=== PATIENT | male | born 1995 | race Caucasian/White ===

== ENCOUNTER 2017-07-02 22:56 | Emergency (ER) | payer MEDICAID, OTHER ==
[~2017-07-02] VITALS: Ht 175.3 cm; Wt 138.0 kg
[2017-07-02 23:05] VITALS: BP 156/90
== END 2017-07-03 04:50 | disposition left against medical advice (07) ==
LOC: ER 22:56
DX: Z53.21 Procedure and treatment not carried out due to patient leaving prior to being seen by health care provider (principal)

== ENCOUNTER 2017-09-12 03:31 | Emergency (ER) | payer MEDICAID ==
[~2017-09-12] VITALS: Ht 175.3 cm; Wt 122.0 kg
[2017-09-12 03:32] VITALS: BP 141/88
== END 2017-09-12 10:17 | disposition left against medical advice (07) ==
LOC: ER 03:31
DX: Z53.21 Procedure and treatment not carried out due to patient leaving prior to being seen by health care provider (principal)

== ENCOUNTER → 2022-03-09 | Day surgery (SDC) | payer MEDICAID ==
[~2022-03-09] VITALS: Ht 177.8 cm; Wt 135.2 kg
[~2022-03-09] MED LIST: ATOR20TA PO; BUPIVACAINE HCL 300 MG IMPLANT(XARACOLL) IL NR; BUPIVACAINE HCL/PF 0.5% (5MG/ML) 30ML ONE; CLINDAMYCIN 900 MG PREMIX 50 ML IV ONE; DEXAMETHASONE 4MG/ML 1ML VIAL ONE; FENTANYL CITRATE/PF 50MCG/ML 2ML VIAL IV PRN; FENTANYL CITRATE/PF 50MCG/ML 2ML VIAL ONE; HYDROCODONE/ACETAMINOPHEN 5/325MG TABLET PO PRN; HYDROMORPHONE HCL/PF 2MG/ML CPJ IV PRN; LACTATED RINGERS 1,000 ML IV SCH; LIDOCAINE HCL 1% 20ML VIAL (Pyxis) INJ ONE; MIDAZOLAM HCL 2 MG/2 ML VIAL ONE; ONDANSETRON HCL 4MG/2ML INJ ONE; PROPOFOL 200MG/20ML VIAL IV ONE; ROCURONIUM BROMIDE 10MG/ML VIAL 5ML IV ONE; SUCCINYLCHOLINE CHLORIDE 200MG/10ML IV ONE
[2022-03-09 09:37] VITALS: BP 169/75
== END | disposition home or self-care (01) ==
LOC: OR 06:07
PROVIDERS: ATTEND Surgery
DX: K40.90 Unilateral inguinal hernia, without obstruction or gangrene, not specified as recurrent (principal); E78.00 Pure hypercholesterolemia, unspecified; Z79.899 Other long term (current) drug therapy; Z98.890 Other specified postprocedural states; Z20.822 Contact with and (suspected) exposure to COVID-19; Z88.0 Allergy status to penicillin
CPT/HCPCS: 49505; 87426; C1781; C9803; J0330; J1100; J2250; J2405; J2704; J3010; J3490; C9089

== ENCOUNTER 2023-07-13 01:05 | Emergency (ER) | payer MEDICAID, OTHER ==
[~2023-07-13] VITALS: Ht 175.3 cm; Wt 109.0 kg
[~2023-07-13 01:05] MED LIST changes: -BUPIVACAINE HCL 300 MG IMPLANT(XARACOLL) IL NR; -BUPIVACAINE HCL/PF 0.5% (5MG/ML) 30ML ONE; -CLINDAMYCIN 900 MG PREMIX 50 ML IV ONE; -DEXAMETHASONE 4MG/ML 1ML VIAL ONE; -FENTANYL CITRATE/PF 50MCG/ML 2ML VIAL IV PRN; -FENTANYL CITRATE/PF 50MCG/ML 2ML VIAL ONE; -HYDROCODONE/ACETAMINOPHEN 5/325MG TABLET PO PRN; -HYDROMORPHONE HCL/PF 2MG/ML CPJ IV PRN; -LACTATED RINGERS 1,000 ML IV SCH; -LIDOCAINE HCL 1% 20ML VIAL (Pyxis) INJ ONE; -MIDAZOLAM HCL 2 MG/2 ML VIAL ONE; -ONDANSETRON HCL 4MG/2ML INJ ONE; -PROPOFOL 200MG/20ML VIAL IV ONE; -ROCURONIUM BROMIDE 10MG/ML VIAL 5ML IV ONE; -SUCCINYLCHOLINE CHLORIDE 200MG/10ML IV ONE
[2023-07-13 01:14] VITALS: O2SAT 99
[2023-07-13 02:49] LABS: BASOPHILS % 0.6 % (0.0-2.0); EOSINOPHILS % 0.9 % (0.0-5.0); HEMATOCRIT. 36.5 % (42.0-52.0); HEMOGLOBIN. 11.8 g/dL (14.0-18.0); LYMPHOCYTES % 14.7 % (20.0-50.0); MEAN CORPUSCULAR HEMOGLOBIN 28.5 pg (28.0-32.0); MEAN CORPUSCULAR HGB CONC 32.4 g/dL (31.0-37.0); MEAN PLATELET VOLUME 8.8 fl (7.4-10.4); MONOCYTES % 6.6 % (2.0-8.0); NEUTROPHILS % 77.2 % (40.0-76.0); PLATELET 162 x1000/uL (130-400); RED BLOOD CELL COUNT 4.15 mill/uL (4.7-6.1); RED CELL DISTRIBUTION WIDTH 13.5 % (11.6-14.6); WHITE BLOOD COUNT 14.8 x1000/uL (4.5-11.0)
[2023-07-13 03:04] LABS: ALANINE AMINOTRANSFERASE 15 IU/L (10-49); ALBUMIN 3.8 g/dL (3.2-4.8); ASPARTATE AMINOTRANSFERASE 21 IU/L (<34); BILIRUBIN TOTAL 0.3 mg/dL (0.1-1.0); CALCIUM 8.3 mg/dL (8.7-10.4); CARBON DIOXIDE 19 mEq/L (21-32); CHLORIDE 112 mEq/L (98-107); CREATININE 3.3 mg/dL (0.6-1.3); GLUCOSE 104 mg/dL (70-105); POTASSIUM 5.1 mEq/L (3.5-5.1); PROTEIN TOTAL 6.1 g/dL (6.0-8.3); SODIUM 139 mEq/L (136-145); UREA NITROGEN BLOOD 30 mg/dL (9-23)
[2023-07-13] MEDS: KETOROLAC 30MG/ML VIAL IV STA (06:06)
[2023-07-13] MEDS: ONDANSETRON HCL 4MG/2ML INJ IV STA (06:06)
[2023-07-13 07:16] LABS: CLARITY URINE CLEAR (CLEAR); COLOR URINE YELLOW (YELLOW); GLUCOSE URINE NEGATIVE (NEGATIVE); KETONES URINE NEGATIVE (NEGATIVE); LEUKOCYTE ESTERASE URINE NEGATIVE (NEGATIVE); NITRITE URINE NEGATIVE (NEGATIVE); OCCULT BLOOD URINE 3+ (NEGATIVE); PH URINE 5.5 (4.5-8.0); PROTEIN URINE 3+ (NEGATIVE); SPECIFIC GRAVITY URINE 1.012 (1.005-1.030); UROBILINOGEN URINE 0.2 E.U./dL (0.2-1.0)
[2023-07-13] MEDS: LEVOFLOXACIN 750MG PREMIX 150 ML IV ONE (07:30)
[2023-07-13 07:43] LABS: COARSE GRANULAR CASTS URINE 0-5 /lpf; FINE GRANULAR CASTS URINE 0-5 /lpf
[2023-07-13 07:45] LABS: SQUAMOUS EPITHELIAL CELL URINE RARE /lpf (RARE/1+); WBC URINE 0-2 /hpf (0-2)
[2023-07-13 07:46] LABS: BACTERIA URINE TRACE
[2023-07-13 07:47] LABS: MUCUS URINE TRACE /lpf (NONE/TRACE)
[2023-07-13 09:11] VITALS: BP 155/78; PULSE 81; RESP 18; TEMP 98.4
[2023-07-13] MEDS: METRONIDAZOLE 500 MG PREMIX 100 ML IV ONE (09:30)
== END 2023-07-13 09:30 | disposition short-term general hospital (02) ==
LOC: ER 01:05
DX: K37 Unspecified appendicitis (principal); K57.30 Diverticulosis of large intestine without perforation or abscess without bleeding
CPT/HCPCS: 80053; 81003; 83690; 85025; 36415; 74176; 96367; 96365; 96375; 99285; J1885; J3490; J2405; J1956; Z7610